=== PATIENT | male | born 1940 | race Two or more races ===

== ENCOUNTER → 2017-05-15 | Emergency (ER) | payer MEDICARE, OTHER ==
[~2017-05-15] VITALS: Ht 165.1 cm; Wt 65.8 kg
[2017-05-15 14:15] VITALS: BP 158/82
--- NOTE | 2017-05-15 16:58 | Emergency Room Report ---
History of Present Illness General Chief Complaint: Alcohol Intoxication Source: Patient Present Illness HPI Elderly male found sleeping outside of the [employer] office He denies any complaints and reports he's been drinking, and said he would like to go I asked him to stay and sober up a bit and he agreed and fell asleep Allergies: Coded Allergies: No Known Allergies (Unverified , 05/15/17) Patient History Past Medical History: see triage record Reviewed Nursing Documentation: PMH: Agreed, PSxH: Agreed Nursing Documentation-PMH Past Medical History: No Stated History Review of Systems All Other Systems: negative except mentioned in HPI Physical Exam Vital Signs Date Time Temp Pulse Resp B/P (MAP) Pulse Ox O2 Delivery O2 Flow Rate FiO2 05/15/17 12:51 98.1 78 18 126/82 98 Room Air Sp02 EP Interpretation: reviewed, normal General Appearance: no apparent distress, alert, non-toxic Head: normocephalic Eyes: bilateral eye normal inspection, bilateral eye PERRL, bilateral eye EOMI ENT: normal ENT inspection, hearing grossly normal, normal pharynx, no angioedema, normal voice, moist mucus membranes Neck: normal inspection, full range of motion, supple, supple/symm/no masses Respiratory: chest non-tender, lungs clear, normal breath sounds, chest symmetrical, palpation of chest normal Cardiovascular #1: normal peripheral pulses, regular rate, rhythm Cardiovascular #2: 2+ radial (R), 2+ radial (L) Gastrointestinal: normal inspection, non tender, soft, no mass, no guarding, no rebound Rectal: deferred Genitourinary: normal inspection, no CVA tenderness Musculoskeletal: back normal, gait/station normal, normal range of motion, non- tender, no calf tenderness Neurologic: alert, responsive, imagery analyst III-XII nml as tested, motor strength/tone normal, sensory intact, normal gait, speech normal Psychiatric: judgement/insight normal, memory normal, mood/affect normal, no suicidal/homicidal ideation Skin: normal color, no rash, warm/dry, normal turgor Lymphatic: no adenopathy Medical Decision Making Reaction to Intervention: Improved Diagnostic Impression: Primary Impression: Acute alcoholic intoxication ER Course Patient sobered up in the department without any interventions he is walking straight without any instability and speaking clearly and will be discharged as he has been calm and cooperative and just slept and now is awake and wants to leave Last Vital Signs Date Time Temp Pulse Resp B/P (MAP) Pulse Ox O2 Delivery O2 Flow Rate FiO2 05/15/17 14:15 99.1 87 19 158/82 98 05/15/17 12:51 Room Air Status: improved Disposition: HOME, SELF-CARE Condition: Stable Referrals: NOT CHOSEN SHYANNE/,REFERRING (PCP) MENDEZ BLANCO M.D May 15, 2017 16:58
== END | disposition home or self-care (01) ==
LOC: EDBD 12:45 → EMR 13:22
DX: F10.129 Alcohol abuse with intoxication, unspecified (principal)
CPT/HCPCS: 99283